=== PATIENT | male | born 1995 | race Caucasian/White ===

== ENCOUNTER 2023-08-17 11:42 | Emergency (ER) | payer OTHER, SELFPAY ==
[2023-08-17] VITALS (35 sets, daily range): BP systolic 116–164; BP diastolic 69–99; BMI 31.6
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
[2023-08-17] MEDS: TORADOL 30 MG IV (13:37)
== END 2023-08-17 16:11 ==
LOC: EMR 11:42
PROVIDERS: EMERGENCY PHYSICIAN Emergency Medicine
DX: S43.004A Unspecified dislocation of right shoulder joint, initial encounter (principal); S01.81XA Laceration without foreign body of other part of head, initial encounter; Y04.2XXA Assault by strike against or bumped into by another person, initial encounter
CPT/HCPCS: 99285; 96374; 23650; 99152; 12013; 70450; 73020; 73030